=== PATIENT | female | born 1985 | race Caucasian/White ===

== ENCOUNTER 2018-01-21 10:39 | Emergency (ER) | payer BC ==
[2018-01-21] MEDS ORDERED: IBUPROFEN 600 MG TABLET PO ONE (10:54)
--- NOTE | 2018-01-21 11:23 | RADIOLOGY REPORT (SQ) ---
EXAM DESCRIPTION: WRIST RIGHT 3 VIEWS COMPLETED DATE/TIME: 01/21/2018 11:14 am REASON FOR STUDY: pain COMPARISON: None. NUMBER OF VIEWS: Four views. TECHNIQUE: AP, lateral, oblique, and scaphoid radiographic images acquired of the right wrist. LIMITATIONS: None. FINDINGS: MINERALIZATION: Normal. BONES: No acute fracture or dislocation. No worrisome bone lesions. Normal alignment. No significant osteophytes. JOINTS: No erosions. No leda-articular osteopenia. No chondrocalcinosis. SOFT TISSUES: No swelling. No calcifications. OTHER: No other significant finding. IMPRESSION: NEGATIVE STUDY OF THE RIGHT WRIST. NO EXPLANATION FOR PAIN. TECHNICAL DOCUMENTATION: JOB ID: [id number] [employer]- All Rights Reserved Reading location - IP/workstation name: [email or web address]
--- NOTE | 2018-01-21 11:31 | ER Document Report ---
ED Hand/Wrist Injury - General Chief Complaint: Wrist Pain Stated Complaint: WRIST PAIN Time Seen by Provider: 01/21/18 10:48 Mode of Arrival: Ambulatory Information source: Patient Notes: 32-year-old female presents to ED for complaint of right wrist pain times a month. She states it radiates up her to her right forearm. She states she does not remember any injury. Patient is alert and oriented, pupils equal and react to light, speaking in full sentences, respirations regular and unlabored, and she is able to walk with a even steady gait. TRAVEL OUTSIDE OF THE [place] IN LAST 30 DAYS: No - HPI Injury to: Forearm, Wrist Onset: Other - month Timing: Waxing and waning Quality of pain: Burning, Sharp Severity: Moderate Pain Level: 4 - Related Data Allergies/Adverse Reactions: No Known Allergies Allergy (Verified 01/21/18 10:39) Past Medical History - General Information source: Patient - Social History Smoking Status: Former Smoker Cigarette use (# per day): No Chew tobacco use (# tins/day): No Smoking Education Provided: No Frequency of alcohol use: weekly Drug Abuse: None Lives with: Family Family History: Reviewed & Not Pertinent Patient has suicidal ideation: No Patient has homicidal ideation: No - Past Medical History Cardiac Medical History: Reports: None Pulmonary Medical History: Reports: Hx Pneumonia - in January 2012 EENT Medical History: Reports: None Neurological Medical History: Reports: None Endocrine Medical History: Reports: None Renal/ Medical History: Reports: Hx Ovarian Cysts Malignancy Medical History: Reports: None GI Medical History: Reports: None Musculoskeltal Medical History: Reports None Skin Medical History: Reports None Psychiatric Medical History: Reports: None Traumatic Medical History: Reports: None Infectious Medical History: Reports: None Surgical Hx: Negative Past Surgical History: Reports: None - Immunizations Hx Diphtheria, Pertussis, Tetanus Vaccination: No Review of Systems - Review of Systems Constitutional: No symptoms reported EENT: No symptoms reported Cardiovascular: No symptoms reported Respiratory: No symptoms reported Gastrointestinal: No symptoms reported Genitourinary: No symptoms reported Female Genitourinary: No symptoms reported Musculoskeletal: Other - Right wrist pain that radiates up to her forearm Skin: No symptoms reported Hematologic/Lymphatic: No symptoms reported Neurological/Psychological: No symptoms reported -: Yes All other systems reviewed and negative Physical Exam - Vital signs Vitals: Temp Pulse Resp BP Pulse Ox 98.8 F 57 L 14 139/98 H 99 01/21/18 10:42 01/21/18 10:42 01/21/18 10:42 01/21/18 10:42 01/21/18 10:42 Interpretation: Normal - General General appearance: Appears well, Alert - HEENT Head: Normocephalic, Atraumatic Eyes: Normal Pupils: PERRL - Respiratory Respiratory status: No respiratory distress Chest status: Nontender Breath sounds: Normal Chest palpation: Normal - Cardiovascular Rhythm: Regular Heart sounds: Normal auscultation Murmur: No - Abdominal Inspection: Normal Distension: No distension Bowel sounds: Normal Tenderness: Nontender Organomegaly: No organomegaly - Back Back: Normal, Nontender - Extremities General upper extremity: Normal inspection, Normal color, Normal ROM, Normal temperature General lower extremity: Normal inspection, Nontender, Normal color, Normal ROM , Normal temperature, Normal weight bearing. No: Ael's sign Shoulder: Normal, Nontender Arm: Normal, Nontender Elbow: Normal, Nontender Forearm: Normal, Nontender. No: Tender Wrist: Tender - States her pain radiates to her forearm, Limited ROM - Due to pain. No: Abrasion, Axial load of thumb pain, Deformity, Dislocation, Ecchymosis, Instability, Laceration, Navicular tenderness - Neurological Neuro grossly intact: Yes Cognition: Normal Orientation: AAOx4 Shirin Coma Scale Eye Opening: Spontaneous Shirin Coma Scale Verbal: Oriented Shirin Coma Scale Motor: Obeys Commands Shirin Coma Scale Total: 15 Speech: Normal Motor strength normal: LUE, RUE, LLE, RLE Sensory: Normal - Psychological Associated symptoms: Normal affect, Normal mood - Skin Skin Temperature: Warm Skin Moisture: Dry Skin Color: Normal Course - Re-evaluation Re-evalutation: 01/21/18 14:53 X-rays were discussed with patient. Patient was treated with cock-up splint and discharged home with instructions to follow-up with orthopedics. - Vital Signs Vital signs: Temp Pulse Resp BP Pulse Ox 98.0 F 57 L 18 125/66 98 01/21/18 11:47 01/21/18 11:47 01/21/18 11:47 01/21/18 11:47 01/21/18 11:47 - Diagnostic Test Radiology reviewed: Image reviewed, Reports reviewed Procedures - Immobilization Right Wrist Time completed: 11:25 Immobilizer type: Cock-up, Sling Performed by: PCT Post-Proc Neuro Vasc Exam: Normal Alignment checked and good: Yes Discharge - Discharge Clinical Impression: Right wrist pain Condition: Stable Disposition: HOME, SELF-CARE Additional Instructions: SPRAIN: Your injury is a sprain. A sprain results from stretching or tearing of the ligaments, usually from a twisting injury. The ligaments will require time and protection in order to heal properly. Many sprains are quite disabling and should be taken seriously. The usual initial treatment of sprains is cold packs, elevation, and rest of the injured area. Your physician has assessed the seriousness of your ligament injury, and has outlined a treatment plan. Understand that this treatment may change, depending on how you progress. If a re-examination was recommended, it is important that you follow up as instructed. Call the doctor any time if there is severe pain, numbness, or loss of function in the injured area. SPLINT PRECAUTIONS: A splint has been placed. This will protect the area while healing begins. Your problem does NOT normally require a cast. It MUST, however, be held still! Keep the splint on ALL THE TIME until instructed to remove it by the doctor. As you begin to use the area, be careful. You shouldn't do anything which causes discomfort -- you may disturb the injury even with the splint in place. After the initial period of rest and elevation, if splint does not prevent pain when you move, come back. You may require placement of a different splint , or a cast. If there is unexpected severe pain, or numbness, discoloration, or swelling beyond the splint, you should return at once. If you feel that the splint has broken or become loose, come back. Sling to be Used You are to use a sling as needed for comfort. This is to rest the area, and to prevent it from hanging downward. Use this sling for comfort to prevent the arm from hanging down playing on your shoulder until you follow-up with orthopedic. Some types of splints will break if not supported by the sling, so the sling must be used as long as the splint. Ice can be placed inside the sling over the injured area. Once you remove the sling, you should not encounter pain when you use the arm and hand. If you do feel pain beneath the cast or splint, you must continue use of the sling. ICE & ELEVATION: Apply ice packs frequently against the painful area. Many different schedules are recommended, such as "20 minutes on, 20 minutes off" or "one hour ice, two hours rest." If you need to work, you may need to go longer between ice treatments. You should plan to have the area ice packed AT LEAST one- fourth of the time. The ice should be applied over the wrap, tape, or splint, or over a layer of cloth -- not directly against the skin. Some ice bags have a built-in cloth and can be put directly on the skin. Your injured part should be elevated as much as possible over the next 48 hours. Try to keep the injury above the level of the heart. Avoid use of the injured area. Elevation and rest will decrease the swelling. USE OF ABAC-SEL-FTABRHP IBUPROFEN: Ibuprofen (Advil, Nuprin, Medipren, Motrin IB) is a medication for fever and pain control. In addition, it has anti- inflammatory effects which may be beneficial, especially in the treatment of injuries. It's best to take ibuprofen with food. Persons with ulcer disease or allergy to aspirin should notify their physician of this before taking ibuprofen. Ibuprofen can be given every four to six hours, for a total of four doses daily. Age Pain or fever dose Antiinflammatory dose 6-8 yr 200 mg (1 tab) 200 mg (1 tab) 9-11 yr 200 mg (1 tab) 200-400 mg (1-2 tab) 11-14 yr 200-400 mg (1-2 tab) 400 mg (2 tab) 15-adult 400 mg (2 tab) 600 mg (3 tab) FOLLOW-UP CARE: If you have been referred to a physician for follow-up care, call the physician s office for an appointment as you were instructed or within the next two days. If you experience worsening or a significant change in your symptoms, notify the physician immediately or return to the Emergency Department at any time for re-evaluation. Forms: Elevated Blood Pressure, Return to Work Referrals: SAVANNA AREVALO MD [ACTIVE STAFF] - Follow up as needed
[2018-01-21 11:51] VITALS: BP 125/66
== END 2018-01-21 11:50 | disposition home or self-care (01) ==
LOC: ER 10:39
DX: M25.531 Pain in right wrist (principal); M79.631 Pain in right forearm; Z87.891 Personal history of nicotine dependence
CPT/HCPCS: 99283; 73110; L3908

== ENCOUNTER 2018-10-16 21:06 | Emergency (ER) | payer BC, OTHER ==
--- NOTE | 2018-10-16 22:03 | ER Document Report ---
ED Extremity Problem, Lower - General Chief Complaint: Leg Pain Stated Complaint: LEG PAIN Time Seen by Provider: 10/16/18 21:41 Notes: Patient is a 33-year-old female that comes emergency department for chief complaint of pain in her right leg, mainly at her right calf and around towards the front of the leg. She states she thinks she felt a pop when bending on at work but she did not notice anything at that time, she states there is a tiny bruise in the back of her leg that she does not remember getting, she denies any significant injury to the leg. She states that swelling and pain has increased. She did take some ibuprofen at home with no obvious improvement. She does not smoke, denies recent travel, denies history of blood clots, is not on oral contraceptive. She denies any daily medications, surgeries, or medical history. TRAVEL OUTSIDE OF THE [place] IN LAST 30 DAYS: No - Related Data Allergies/Adverse Reactions: No Known Allergies Allergy (Verified 10/16/18 21:10) Past Medical History - General Information source: Patient - Social History Smoking Status: Never Smoker Frequency of alcohol use: None Drug Abuse: None Lives with: Family Family History: Reviewed & Not Pertinent Pulmonary Medical History: Reports: Hx Pneumonia - in January 2012 Denies: Hx Asthma Renal/ Medical History: Reports: Hx Ovarian Cysts. Denies: Hx Peritoneal Dialysis - Immunizations Hx Diphtheria, Pertussis, Tetanus Vaccination: Yes Review of Systems - Review of Systems Constitutional: No symptoms reported EENT: No symptoms reported Cardiovascular: No symptoms reported Respiratory: No symptoms reported Gastrointestinal: No symptoms reported Genitourinary: No symptoms reported Female Genitourinary: No symptoms reported Musculoskeletal: See HPI Skin: No symptoms reported Hematologic/Lymphatic: No symptoms reported Neurological/Psychological: No symptoms reported Physical Exam - Vital signs Vitals: Temp Pulse Resp BP Pulse Ox 97.8 F 61 16 135/94 H 99 10/16/18 21:21 10/16/18 21:21 10/16/18 21:21 10/16/18 21:21 10/16/18 21:21 - Notes Notes: GENERAL: Alert, interacts well. No acute distress. HEAD: Normocephalic, atraumatic. EYES: Pupils equal, round, and reactive to light. Extraocular movements intact. ENT: Oral mucosa moist, tongue midline. Oropharynx unremarkable. Airway patent. Nares patent, no nasal septal hematoma, TM's intact. NECK: Full range of motion. Supple. Trachea midline. LUNGS: Clear to auscultation bilaterally, no wheezes, rales, or rhonchi. No respiratory distress. HEART: Regular rate and rhythm. No murmur ABDOMEN: Soft, non-tender. Non-distended. Bowel sounds present in all 4 quadrants. GENITOURINARY: Deferred EXTREMITIES: Pain with palpation of the right calf, there is a tiny area of ecchymosis at the central mid to lower calf, there is no induration or fluctuance, there is no abnormal erythema. There is a very small amount of soft tissue swelling. There is also some tenderness over the proximal anterior tibia without sign of trauma. Normal range of motion of the knee with no pain in doing this, ankle and foot exam are normal. Normal distal neurovascular exam. BACK: no cervical, thoracic, lumbar midline tenderness. No saddle anesthesia, normal distal neurovascular exam. NEUROLOGICAL: Alert and oriented x3. Normal speech. [cranial nerves II through XII grossly intact]. PSYCH: Normal affect, normal mood. SKIN: Warm, dry, normal turgor. No rashes or lesions noted. Course - Re-evaluation Re-evalutation: Venous Doppler ultrasound of the right lower extremity initial results are negative. X-rays negative for any acute findings. Examination shows evidence of likely gastrocnemius tear without severe swelling, there is no evidence of compartment syndrome, the area is not rigid or severely tender. Patient is able to ambulate without significant difficulty. Normal distal neurovascular exam. No other concerning findings. Discussed results, recommendations, provided with work-release, discussed follow-up and return precautions. Orthopedic referral placed. Patient states satisfaction and agreement with plan. - Vital Signs Vital signs: Temp Pulse Resp BP Pulse Ox 97.9 F 72 18 122/68 98 10/16/18 23:55 10/16/18 23:55 10/16/18 23:55 10/16/18 23:55 10/16/18 23:55 Discharge - Discharge Clinical Impression: Right calf pain Condition: Stable Disposition: HOME, SELF-CARE Additional Instructions: The Doppler does not show a blood clot. The x-ray does not show any concerning findings including foreign body, avulsion, fracture. This appears to be a gastrocnemius tear (tear of part of the calf muscle). The first day or so ice can help, after this heat usually helps this resolve. Take the anti-inflammatory as prescribed, rest the leg. This should resolve with time. Follow-up with orthopedics if symptoms continue. Return if you worsen including severe swelling, developing or spreading redness, or any other concerning or worsening symptoms. Prescriptions: Naproxen 500 mg PO BID PRN #20 tablet PRN Reason: Forms: Return to Work
--- NOTE | 2018-10-16 22:39 | RADIOLOGY REPORT (SQ) ---
EXAM DESCRIPTION: XR TIBIA FIBULA 2 VIEWS COMPLETED DATE/TME: 10/16/2018 21:48 CLINICAL HISTORY: 33 years Female, right leg pain, ? injury COMPARISON: None. Findings: Moderate calcaneal enthesophytes. Bones, joints, and soft tissues of the RIGHT XR TIBIA FIBULA 2 VIEWS appear otherwise intact. IMPRESSION: No acute findings.
[2018-10-17 00:27] VITALS: BP 122/68
--- NOTE | 2018-10-17 13:40 | XCELERA REPORT ---
[address] [facility] [id number] Lower Extremity Venous Evaluation Procedure: Color flow and duplex imaging of the veins of the right lower extremity as well as the left Common Femoral vein. Right Sided Venous Evaluation Normal vessel filling wall to wall, compression and augmentation as well as Colour flow down to the infrageniculate veins. Left Sided Venous Evaluation The left common femoral vein is fully compressible. Spontaneous and phasic flow is present in the left common femoral vein. Interpretation Summary No duplex evidence of DVT or obstruction in the right lower extremity nor in the left Common Femoral vein. Name: ELADIO WRIGHT Age: 33 yrs Gender: Female : 1985 Patient Status: Emergency Patient Location: ER Study Date: 10/16/2018 11:01 PM Reason For Study: RLE swelling and pain Ordering Physician: JOSE TRIPATHI Performed By: Julian Marie : JOSE TRIPATHI > Josué Alfredo
== END 2018-10-16 23:55 | disposition home or self-care (01) ==
LOC: ER 21:06
DX: M79.661 Pain in right lower leg (principal); R58 Hemorrhage, not elsewhere classified
CPT/HCPCS: 93971; 99284

== ENCOUNTER 2020-08-15 00:30 | Emergency (ER) | payer SELFPAY ==
[2020-08-15 02:41] LABS: ABSOLUTE EOSINOPHILS # (AUTO) 0.2 10^3/uL (0.0-0.6); ABSOLUTE LYMPHOCYTES (AUTO) 2.1 10^3/uL (0.5-4.7); ABSOLUTE MONOCYTES (AUTO) 0.7 10^3/uL (0.1-1.4); ABSOLUTE NEUT (AUTO) 6.3 10^3/uL (1.7-8.2); BASOPHILS % (AUTO) 0.3 % (0-2); EOSINOPHILS % (AUTO) 2.7 % (0-6); HEMATOCRIT 41.9 % (36.0-47.0); HEMOGLOBIN 14.4 g/dL (12.0-15.5); LYMPHOCYTES % (AUTO) 22.6 % (13-45); MEAN CORPUSCULAR HGB CONC 34.5 g/dL (32.0-36.0); MEAN CORPUSCULAR VOLUME 93 fl (80-97); MONOCYTES % (AUTO) 7.5 % (3-13); PLATELET COUNT 250 10^3/uL (150-450); RED BLOOD COUNT 4.52 10^6/uL (3.72-5.28); SEGMENTED NEUTROPHILS % (AUTO) 66.9 % (42-78); TOTAL CELLS COUNTED % (AUTO) 100 %; WHITE BLOOD COUNT 9.4 10^3/uL (4.0-10.5)
[2020-08-15 02:48] LABS: APPEARANCE,URINE CLEAR; BILIRUBIN,URINE NEGATIVE (NEGATIVE); COLOR,URINE STRAW; GLUCOSE, URINE NEGATIVE (NEGATIVE); KETONES,URINE NEGATIVE (NEGATIVE); LEUKOCYTE ESTERASE,URINE NEGATIVE (NEGATIVE); NITRITE,URINE NEGATIVE (NEGATIVE); PROTEIN,URINE NEGATIVE (NEGATIVE); URINE SPECIFIC GRAVITY 1.008; UROBILINOGEN,URINE NEGATIVE mg/dL (<2.0)
[2020-08-15 03:08] LABS: ALBUMIN 4.3 g/dL (3.5-5.0); ALKALINE PHOSPHATASE 62 U/L (38-126); ANION GAP 6 (5-19); ASPARTATE AMINO TRANSFERASE 29 U/L (14-36); BILIRUBIN,DIRECT 0.2 mg/dL (0.0-0.4); BILIRUBIN,TOTAL 0.5 mg/dL (0.2-1.3); BLOOD UREA NITROGEN 15 mg/dL (7-20); CALCIUM 10.1 mg/dL (8.4-10.2); CARBON DIOXIDE 31 mmol/L (22-30); CHLORIDE 104 mmol/L (98-107); GLUCOSE 96 mg/dL (75-110); POTASSIUM 4.9 mmol/L (3.6-5.0); TOTAL PROTEIN 7.7 g/dL (6.3-8.2)
[2020-08-15] MEDS ORDERED: LIDOCAINE 2% VISCOUS SOLN 15 ML UDCUP PO ONE (09:03)
[2020-08-15] MEDS ORDERED: MAG HYDROX/AL HYDROX/SIMETH SUSP 30 ML UDCUP PO ONE (09:03)
[2020-08-15] MEDS ORDERED: METOCLOPRAMIDE HCL ORAL SOLN 10 MG/10 ML UDCUP PO ONE (09:03)
--- NOTE | 2020-08-15 09:57 | RADIOLOGY REPORT (SQ) ---
EXAM DESCRIPTION: U/S ABDOMEN LIMITED W/O DOP IMAGES COMPLETED DATE/TIME: 08/15/2020 9:42 am REASON FOR STUDY: RUQ and epigastric pain, nasuea COMPARISON: None. TECHNIQUE: Dynamic and static grayscale images acquired of the abdomen and recorded on PACS. Chero carly selected color Doppler and spectral images recorded. LIMITATIONS: None. FINDINGS: PANCREAS: Visualized portions the pancreas are normal in appearance. LIVER: The liver is echogenic consistent with fatty infiltration. LIVER VASCULATURE: Normal directional flow of the main portal vein and hepatic veins. GALLBLADDER: Small nonshadowing echogenic foci most likely gallstones. No pericholecystic edema. Th e wall is slightly thickened measured 4 mm. There is gallbladder sludge. ULTRASOUND-DETECTED PALMER'S SIGN: Positive. INTRAHEPATIC DUCTS AND COMMON DUCT: CBD and intrahepatic ducts normal caliber. No filling defects. RIGHT KIDNEY: Normal size. Normal echogenicity. No solid or suspicious masses. No hydronephrosis. No calcifications. PERITONEAL AND RIGHT PLEURAL SPACE: No ascites or effusions. OTHER: No other significant findings. IMPRESSION: Small gallstones and sludge. Mild gallbladder wall thickening and positive sonographic Palmer's sign. TECHNICAL DOCUMENTATION: JOB ID: [id number] [employer]- All Rights Reserved Reading location - IP/workstation name: [email or web address]
--- NOTE | 2020-08-15 11:10 | ER Document Report ---
ED General - General Chief Complaint: Abdominal Pain Stated Complaint: ABDOMINAL PAIN TRAVEL OUTSIDE OF THE [place] IN LAST 30 DAYS: No - HPI Notes: Chief Complaint: Abdominal pain Historian: History obtained from patient HPI: This is a 35-year-old female presents to the ER with 2 days of upper abdominal pain and nausea. Patient states this began shortly after eating a meal yesterday. Pain slightly improved after only drinking water for a few hours but when she tried to eat peanut butter toast pain returned. No episodes of vomiting. Pain is epigastric and nonradiating. Laying on her left side also improves the pain. Denies dysuria, bowel changes, fever/chills, chest pain, shortness of breath. No prior abdominal surgeries. ROS: Constitutional: no fevers. HEENT: no ABBOTT, sore throat, or vision changes. CV: no chest pain or palpitations. Resp: no cough or SOB. GI: Epigastric abdominal pain, nausea : no dysuria, hematuria, or incont. MSK: no back pain, no joint swelling/redness. Skin: no rashes or itching. Neuro: no seizures, weakness, numbness, or confusion. Hematological: no ecchymosis or easy bleeding. Endocrine: no polyuria/polydipsia, no heat/cold intolerance. Psych: no SI/HI, AH/VH or memory loss. PMHx: Reviewed and agree as charted by RN. PSHx: Reviewed and agree as charted by RN. SOCHx: Reviewed and agree as charted by RN. FHX: No significant familial comorbid conditions directly related to patient complaint Current Medications: Reviewed and agree with the patient medications as charted by the RN. Allergies: Reviewed and agree with the listed allergies as charted by the RN Physical Exam: Vitals: Reviewed in chart as documented by RN. General: Alert and in NAD. Head: Normocephalic; atraumatic Eyes: PERRLA, Conjunctivae clear sclerae non-icteric bilat ENT: no soft palate swelling or uvular deviation Neck: trachea midline, no unilateral swelling/tenderness/lymphadenopathy CV: RRR, no M/R/G; symmetric distal pulses Resp: respirations even and unlabored, CTA bilat. GI: Abdomen soft and nondistended. Tender to RUQ with voluntary guarding. Positive Palmer's. No rebound no CVAT bilat MSK: FROM of all extremities. No midline CTL spine tenderness/deformity Skin: warm, moist, good turgor. no rash/lesions Neuro: Alert and oriented X 4. following CN 2-12 intact. no unilateral weakness/numbness Psych: No SI/HI or AH/VH. ED Results: Medical Decision-Making: Medical Decision-making/Differential Diagnosis: Consider various etiologies including but not limited to IUP, ectopic preg, ovarian torsion, PID, Abdominal pain, Hernia, Acute Gastritis, Appendicitis, Partial or Complete small bowel obstruction, Cholecysitis, Diverticulitis, Gastroenteritis, GERD, Nephrolithiasis, Pancreatitis, Peptic Ulcer Disease, Urinary Tract Infection, Pyelonephritis, Infection, metabolic derangement, ect plan - Labs, urine, abdominal US, GI cocktail, and a period of observation in the emergency department for frequent reassessments. This course of action was discussed with the patient and/or family. They were amenable to this, verbalized understanding, and were without further questions. - Related Data Allergies/Adverse Reactions: No Known Allergies Allergy (Verified 08/15/20 01:32) Past Medical History - Social History Smoking Status: Former Smoker Frequency of alcohol use: Social Drug Abuse: None Family History: Reviewed & Not Pertinent Pulmonary Medical History: Reports: Hx Pneumonia - in January 2012 Denies: Hx Asthma Renal/ Medical History: Reports: Hx Ovarian Cysts. Denies: Hx Peritoneal Dialysis - Immunizations Hx Diphtheria, Pertussis, Tetanus Vaccination: Yes Physical Exam - Vital signs Vitals: Temp Pulse Resp BP Pulse Ox 98.1 F 74 20 154/96 H 99 08/15/20 00:51 08/15/20 00:51 08/15/20 00:51 08/15/20 00:51 08/15/20 00:51 Course - Re-evaluation Re-evalutation: 08/15/20 11:06 labs reviewed and reassuring, normal white count, lipase and LFTs wnl. hcg negative, urine w/o signs of infection. abdominal US- sludge and small gallstones. 4mm GB wall- mild thickening. normal ducts. no perichol fluid. Pts symptoms related to biliary colic but no signs of acute cholectysitis at this time. Offered general surgery consult in the ED to pt for possible admission for cholecystectomy but pt declined. she prefers to d/c home w/ outpt surgery follow up. will d/c w/ pain control and antiemetics. extensive discussion w/ pt regarding signs that would warrant an urgent return to the ER . She agrees w/ the plan of care. PT is well appearing in the ER and says her pain has mostly resolved- she is ambulatory and nontoxic appearing. I discussed case w/ my ER attending - Dr Hankins- who agrees w/ the plan of care. - Vital Signs Vital signs: Temp Pulse Resp BP Pulse Ox 97.8 F 61 20 142/80 H 100 08/15/20 06:07 08/15/20 06:07 08/15/20 06:07 08/15/20 06:07 08/15/20 06:07 - Laboratory Results Result Diagrams: 08/15/20 01:54 08/15/20 01:54 Laboratory Results Interpreted: 08/15/20 08/15/20 01:54 01:54 Carbon Dioxide 31 H Urine Blood SMALL H Critical Laboratory Results Reviewed: No Critical Results - Radiology Results Critical Radiology Results Reviewed: No Critical Results - GB sludge/stone and mild GB wall thickening. normal ducts. no perichol fluid. Dr hankins aware Discharge - Discharge Clinical Impression: Gallstones and inflammation of gallbladder without obstruction Condition: Stable Disposition: HOME, SELF-CARE Instructions: Gallbladder Disease ([facility]), Low-Fat Diet ([facility]) Additional Instructions: follow printed instructions. no driving on pain medications. call the surgeons office today to schedule an appointment RENEE. eat a low fat diet. return to the ER if your symptoms worsen or if you have fever, chills, intractable vomiting, ect. Prescriptions: Hydrocodone/Acetaminophen [[place] 5-325 mg Tablet] 1 tab PO Q6HP PRN #12 tablet PRN Reason: Ondansetron [Zofran Odt 4 mg Tablet] 1 - 2 tab PO Q4H PRN #15 tab.rapdis PRN Reason: For Nausea/Vomiting Referrals: AKHIL JOHNSON MD [ACTIVE STAFF] - Follow up as needed
[2020-08-15 11:56] VITALS: BP 137/91
== END 2020-08-15 12:12 | disposition home or self-care (01) ==
LOC: ER 00:30
DX: K80.10 Calculus of gallbladder with chronic cholecystitis without obstruction (principal); R10.10 Upper abdominal pain, unspecified
CPT/HCPCS: 99284; 36415; 84702; 83690; 85025; 80053; 81001; 76705; J3490